=== PATIENT | male | born 1940 | race Caucasian/White ===

== ENCOUNTER 2022-06-22 15:53 | Inpatient (IN) | payer MEDICARE, OTHER ==
[~2022-06-22 15:53] MED LIST: ETOMIDATE 2 MG/ML 10 ML VIAL IVP STA
[2022-06-22] MEDS ORDERED: ROCURONIUM 10 MG/ML (5 ML VIAL) IV ONE (15:54)
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
[2022-06-22 16:16] LABS: Ionized Calcium 5.1 mg/dL (4.5-5.3)
[2022-06-22 16:18] LABS: Basophils # (A) 0.2 k/uL (0-0.2); Basophils % (A) 1 %; Eosinophils # (A) 0.5 k/uL (0-0.7); Eosinophils % (A) 3 %; HGB 14.1 gm/dL (13.0-17.5); Hypochromasia Marked; Lymphocytes # (A) 4.9 k/uL (1.0-4.8); Lymphocytes % (A) 37 %; MCH 29.1 pg (25.0-35.0); MCHC 29.3 g/dL (31.0-37.0); MCV 99.3 fL (80.0-100.0); Mean Platelet Volume 7.8; Monocytes # (A) 0.7 k/uL (0-1.0); Monocytes % (A) 5 %; Neutrophils # (A) 6.7 k/uL (1.3-7.7); Neutrophils % (A) 50 %; Platelet Count 237 k/uL (150-450); RBC 4.83 m/uL (4.30-5.90); RDW 12.7 % (11.5-15.5); WBC 13.4 k/uL (3.8-10.6)
[2022-06-22 16:21] LABS: Albumin 3.8 g/dL (3.5-5.0); Partial Thromboplastin Time 26.8 sec (22.0-30.0); Total Bilirubin 0.6 mg/dL (0.2-1.3); Total Protein 6.4 g/dL (6.3-8.2)
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
[2022-06-22 16:35] LABS: ABG Base Excess -14.2 mmol/L; ABG HCO3 17 mmol/L (21-25); ABG Oxygen Saturation 91.3 % (94-97); ABG PO2 99 mmHg (83-108); ABG TCO2 20 mmol/L (19-24); Allen Test Performed? Yes
--- NOTE | 2022-06-22 16:37 | XR ---
EXAMINATION TYPE: XR chest 1V confirm line [facility] DATE OF EXAM: 06/22/2022 COMPARISON: 06/22/2022 HISTORY: Tube placement TECHNIQUE: FINDINGS: There is nasogastric tube that is folded on itself in the upper thoracic esophagus. The end otracheal tube is 2 cm from the anette. There is pulmonary interstitial edema. IMPRESSION: There is malposition of the nasogastric tube as above. Pulmonary edema unchanged.
[2022-06-22 16:40] LABS: Potassium 4.5 mmol/L (3.5-5.1)
[2022-06-22 16:41] LABS: Magnesium 2.4 mg/dL (1.6-2.3)
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
[2022-06-22 17:05] LABS: ABG PCO2 73 mmHg (35-45); ABG PH 6.98 (7.35-7.45)
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
[2022-06-22] MEDS ORDERED: NALOXONE 0.4 MG/ML 1 ML VIAL IV PRN (17:18)
[2022-06-22] MEDS ORDERED: ASPIRIN 300 MG SUPP RECTAL STA (17:21)
[2022-06-22] MEDS ORDERED: ASPIRIN 325 MG TAB PO STA (17:21)
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
[2022-06-22] MEDS ORDERED: VANCOMYCIN IV PER PHARMACY 1 EACH MISC MISCELLANE PRN (17:41)
[2022-06-22] MEDS ORDERED: niCARdipine 20 MG in SODIUM CHLORIDE 0.9% 192 ML IV SCH (17:45)
[2022-06-22] MEDS ORDERED: FUROSEMIDE 10 MG/ML 4 ML VIAL IV SCH (17:45)
[2022-06-22] MEDS ORDERED: ALBUTEROL NEBULIZED 2.5 MG/3 ML INHALATION SCH ×2 (18:00→19:00)
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
--- NOTE | 2022-06-22 18:12 | XR ---
EXAMINATION TYPE: XR chest 1V confirm line [facility] DATE OF EXAM: 06/22/2022 COMPARISON: Today HISTORY: Check tube placement TECHNIQUE: FINDINGS: There is nasogastric tube folded on itself in the mid esophagus. There is pulmonary patchy edema. Heart size is normal. The endotracheal tube is 4 cm from the anette. No pleural effusion. No p neumothorax. IMPRESSION: Malposition of the nasogastric tube in the esophagus without much change. Pulmonary edema without change.
--- NOTE | 2022-06-22 18:13 | XR ---
EXAMINATION TYPE: XR chest 1V confirm line [facility] DATE OF EXAM: 06/22/2022 COMPARISON: Today HISTORY: Tube placement TECHNIQUE: FINDINGS: There is nasogastric tube with the tip in the stomach. The endotracheal tube is 6 cm from t he anette. There is pulmonary patchy airspace edema. IMPRESSION: NG tube in good position in the stomach. Pulmonary edema without change.
[2022-06-22 18:25] LABS: Glucose,Whole Blood 184 mg/dL (70-110)
[2022-06-22] MEDS: SODIUM CHLORIDE 0.9% 1,000 ML IV SCH (18:41)
[2022-06-22] MEDS: PIPERACILLIN-TAZOBACTAM 3.375 GM in SODIUM CHLORIDE 0.9% 100 ML IVPB SCH (18:44)
[2022-06-22] MEDS: CLEVIDIPINE BUTYRATE 25 MG in EMPTY BAG 1 BAG IV SCH (18:44)
[2022-06-22] MEDS: PANTOPRAZOLE 40 MG/10 ML VIAL IV SCH (18:44)
[2022-06-22 19:14] LABS: ABG Base Excess -7.6 mmol/L; ABG HCO3 19 mmol/L (21-25); ABG Oxygen Saturation 94.9 % (94-97); ABG PCO2 44 mmHg (35-45); ABG PH 7.26 (7.35-7.45); ABG PO2 88 mmHg (83-108); ABG TCO2 21 mmol/L (19-24); Allen Test Performed? Yes
[2022-06-22] MEDS ORDERED: NOREPINEPHRIN 4 MG-0.9% NS PMX 4 MG/250 ML ML IV ONE (19:19)
[2022-06-22] MEDS ORDERED: SODIUM CHLORIDE 0.9% 1,000 ML IV ONE (19:36)
[2022-06-22 19:40] LABS: Appearance,Urine Cloudy (Clear); Bacteria,Urine Many /hpf; Bilirubin,Urine Negative (Negative); Blood,Urine Moderate (Negative); Color,Urine Yellow; Glucose,Urine (UA) Negative (Negative); Ketones,Urine Negative (Negative); Leukocyte Esterase,Urine Small (Negative); Mucus,Urine Rare /hpf; Nitrite,Urine Positive (Negative); Protein,Urine 2+ (Negative); RBC,Urine 12 /hpf (0-5); Specific Gravity,Urine 1.016 (1.001-1.035); Squamous Epithelial Cell,Urine 1 /hpf (0-4); Urobilinogen,Urine <2.0 mg/dL (<2.0); WBC,Urine 65 /hpf (0-5)
[2022-06-22] MEDS ORDERED: VANCOMYCIN 1,750 MG in SODIUM CHLORIDE 0.9% 500 ML 500 ML IVPB ONE (20:00)
[2022-06-22] MEDS: IPRATROPIUM-ALBUTEROL 3 ML NEB INHALATION SCH (20:34)
[2022-06-22] MEDS: HYDROmorphone 1 MG/ML 1 ML SYRINGE IVP PRN ×2 (20:42→23:46)
[2022-06-22] MEDS: CHLORHEXIDINE GLUCONATE 15 ML CUP MUCOUS MEM SCH (20:43)
[2022-06-22] MEDS: DEXAMETHASONE SOD PHOSPHATE 10 MG/ML 1 ML VIAL IVP SCH (20:43)
[2022-06-22 21:11] LABS: ABG Base Excess -7.3 mmol/L; ABG HCO3 20 mmol/L (21-25); ABG Oxygen Saturation 94.8 % (94-97); ABG PCO2 42 mmHg (35-45); ABG PH 7.28 (7.35-7.45); ABG PO2 85 mmHg (83-108); ABG TCO2 21 mmol/L (19-24); Allen Test Performed? Yes
[2022-06-22] MEDS: NOREPINEPHRINE 4 MG in SODIUM CHLORIDE 0.9% 250 ML IV SCH ×3 (21:58→23:31)
[2022-06-22] MEDS ORDERED: SODIUM BICARB 8.4% 50 ML SYR (1 MEQ/ML) IV STA (22:21)
[2022-06-23] MEDS: IPRATROPIUM-ALBUTEROL 3 ML NEB INHALATION SCH ×7 (00:45→23:55)
[2022-06-23] MEDS: PIPERACILLIN-TAZOBACTAM 3.375 GM in SODIUM CHLORIDE 0.9% 100 ML IVPB SCH ×3 (01:09→18:50)
[2022-06-23 01:13] LABS: Glucose,Whole Blood 138 mg/dL (70-110)
[2022-06-23] MEDS: NOREPINEPHRINE 8 MG in SODIUM CHLORIDE 0.9% 250 ML IV SCH ×4 (01:39→19:45)
[2022-06-23 05:45] LABS: ABG Base Excess -5.4 mmol/L; ABG HCO3 21 mmol/L (21-25); ABG PCO2 42 mmHg (35-45); ABG PH 7.31 (7.35-7.45); ABG PO2 98 mmHg (83-108); ABG TCO2 22 mmol/L (19-24); Allen Test Performed? Yes
[2022-06-23 06:03] LABS: Glucose,Whole Blood 133 mg/dL (70-110)
[2022-06-23 06:20] LABS: Calcium 7.8 mg/dL (8.4-10.2); Magnesium 1.9 mg/dL (1.6-2.3); Potassium 5.3 mmol/L (3.5-5.1)
[2022-06-23 06:23] LABS: Partial Thromboplastin Time 23.9 sec (22.0-30.0)
[2022-06-23 06:41] LABS: HCT 43.2 % (39.0-53.0); HGB 14.4 gm/dL (13.0-17.5); MCH 31.2 pg (25.0-35.0); MCHC 33.4 g/dL (31.0-37.0); Mean Platelet Volume 7.9; Platelet Count 250 k/uL (150-450); RBC 4.62 m/uL (4.30-5.90); RDW 13.3 % (11.5-15.5); WBC 20.4 k/uL (3.8-10.6)
[2022-06-23 06:48] LABS: MCV 93.5 fL (80.0-100.0)
[2022-06-23 08:05] LABS: Band Neutrophils % 9 %; Lymphocytes # (M) 0.61 k/uL (1.0-4.8); Monocytes # (M) 0.61 k/uL (0-1.0); Myelocytes % 1 %; Neutrophils % (M) 85 %; Nucleated Red Blood Cells 0 /100 WBC (0-0); Total Cells Counted 200
[2022-06-23 08:06] LABS: RBC Morphology Normal
[2022-06-23] MEDS: PANTOPRAZOLE 40 MG/10 ML VIAL IV SCH (08:30)
[2022-06-23] MEDS: CHLORHEXIDINE GLUCONATE 15 ML CUP MUCOUS MEM SCH (08:30)
[2022-06-23] MEDS: DEXAMETHASONE SOD PHOSPHATE 10 MG/ML 1 ML VIAL IVP SCH (08:31)
--- NOTE | 2022-06-23 08:34 | XR ---
EXAMINATION TYPE: XR chest 1V portable DATE OF EXAM: 06/23/2022 COMPARISON: 06/22/2022 INDICATION: Tube placement difficulty breathing TECHNIQUE: Single frontal view of the chest is obtained. FINDINGS: The heart size is normal. The pulmonary vasculature is prominent. Diffuse mild infiltrate is present, infiltrates improved from comparison. Endotracheal tube tip is above the anette. Nasogastric tube transverses the thorax. IMPRESSION: 1. Good bilateral lung infiltrates. 2. Lines and catheters discussed above.
--- NOTE | 2022-06-23 10:23 | XR ---
EXAMINATION TYPE: XR chest 1V confirm line [facility] DATE OF EXAM: 06/23/2022 COMPARISON: 06/23/2022 INDICATION: Confirm line placement TECHNIQUE: Single frontal view of the chest is obtained. FINDINGS: The heart size is normal. The pulmonary vasculature is normal. Mild right lower lobe infiltrate is present. Endotracheal tube tip is above the anette. Nasogastric tube transverses thorax. Left central venous c atheter is present with the tip in the superior vena cava region. No pneumothorax is evident. IMPRESSION: 1. Improving right lung infiltrates. 2. Lines and catheters discussed above. 3. Left central venous catheter placement with the tip in the superior vena cava region. No pneumotho rax is evident.
--- NOTE | 2022-06-23 11:28 | PCN ---
PROCEDURE NOTE OPERATIVE REPORT: Placement of the left subclavian triple-lumen catheter. PREOPERATIVE DIAGNOSES: Acute hypoxic respiratory failure, cardiac arrest, and anoxic brain injury. POSTOPERATIVE DIAGNOSES: Acute hypoxic respiratory failure, cardiac arrest, and anoxic brain injury. ANESTHESIA USED: 2 mL of 1% lidocaine. PROCEDURE: The patient was placed in a supine position, the area of the left subclavian region was prepared in a sterile fashion. Drapes were applied. The area below the left clavicle was anesthetized locally with lidocaine. Then using the infraclavicular approach, the left subclavian vein was easily cannulated, and a guidewire was placed, and a triple- lumen catheter was inserted over the guidewire, and the guidewire was removed. Good blood flow noted in the 3 different ports of the triple-lumen catheter. No complications. Line was secured with 3.0 silk sutures. Chest x-ray, no complications, and no pneumothorax. MMODL / IJN: [id number] /
--- NOTE | 2022-06-23 11:28 | PCN ---
PROCEDURE NOTE OPERATIVE REPORT: Placement of left radial arterial line. PREOPERATIVE DIAGNOSIS: Acute hypoxic respiratory failure and cardiac arrest. POSTOPERATIVE DIAGNOSIS: Acute hypoxic respiratory failure and cardiac arrest. ANESTHESIA: Used none deployed. PROCEDURE: The left wrist was prepared in a sterile fashion. Drapes were applied, the left radial artery was palpated, cannulated, and a guidewire and a catheter were used using an Arrow catheter, the left radial artery was cannulated easily, and catheter was advanced over the guidewire, the guidewire was removed. Good blood flow, good waveform noted, no complications. Line was secured using 3.0 silk sutures. MMODL / IJN: [id number] /
[2022-06-23 11:48] LABS: Glucose,Whole Blood 150 mg/dL (70-110)
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
[2022-06-23] MEDS ORDERED: HEPARIN SODIUM 1,000 UN/ML (10ML VL) IV ONE (12:49)
[2022-06-23] MEDS ORDERED: HEPARIN SODIUM 1,000 UN/ML (10ML VL) IV PRN (12:49)
[2022-06-23] MEDS: ASPIRIN 81 MG PO SCH (13:18)
[2022-06-23 13:28] LABS: Basophils % (A) 0 %; Eosinophils % (A) 0 %; HCT 40.6 % (39.0-53.0); Lymphocytes # (A) 0.7 k/uL (1.0-4.8); Lymphocytes % (A) 4 %; MCH 29.2 pg (25.0-35.0); MCHC 32.1 g/dL (31.0-37.0); MCV 91.1 fL (80.0-100.0); Mean Platelet Volume 7.7; Monocytes # (A) 0.6 k/uL (0-1.0); Monocytes % (A) 3 %; Neutrophils # (A) 17.3 k/uL (1.3-7.7); Neutrophils % (A) 93 %; Platelet Count 213 k/uL (150-450); RBC 4.46 m/uL (4.30-5.90); RDW 13.1 % (11.5-15.5); WBC 18.7 k/uL (3.8-10.6)
[2022-06-23 13:39] LABS: Partial Thromboplastin Time 24.3 sec (22.0-30.0); Prothrombin Time 10.9 sec (9.0-12.0)
[2022-06-23] MEDS: HEPARIN SOD,PORK IN 0.45% NACL 25,000 UNIT in 0.45% NACL 1 250ML.BAG IV SCH (13:41)
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
--- NOTE | 2022-06-23 14:33 | US ---
EXAMINATION TYPE: US venous doppler duplex LE DATE OF EXAM: 06/23/2022 2:25 PM COMPARISON: NONE CLINICAL HISTORY: elevated d dimer r/o dvt. SIDE PERFORMED: TECHNIQUE: The lower extremity deep venous system is examined utilizing real time linear array sonog price with graded compression, doppler sonography and color-flow sonography. VESSELS IMAGED: Common Femoral Vein Deep Femoral Vein Greater Saphenous Vein * Femoral Vein Popliteal Vein Small Saphenous Vein * Proximal Calf Veins (* superficial vessels) Right Leg: Negative for DVT Left Leg: Negative for DVT Technically difficult at left pop fossa due to patient inability to move his leg. IMPRESSION: No sign of deep vein thrombosis in both legs.
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
[2022-06-23] MEDS ORDERED: VANCOMYCIN 1,750 MG in SODIUM CHLORIDE 0.9% 500 ML 500 ML IVPB SCH (16:00)
[2022-06-23 16:13] LABS: Calcium 7.7 mg/dL (8.4-10.2); Potassium 3.9 mmol/L (3.5-5.1)
[2022-06-23] MEDS: SODIUM CHLORIDE 0.9% 1,000 ML IV SCH (18:13)
[2022-06-23 18:26] LABS: Glucose,Whole Blood 158 mg/dL (70-110)
[2022-06-23] MEDS: CLEVIDIPINE BUTYRATE 25 MG in EMPTY BAG 1 BAG IV SCH (18:31)
[2022-06-23] MEDS ORDERED: DEXTROSE 50% SYRINGE 50 ML IVP PRN ×2 (18:33)
[2022-06-23] MEDS: INSULIN ASPART (NovoLOG) 100 UNIT/ML VIAL SQ SCH (19:20)
--- NOTE | 2022-06-23 21:16 | NM ---
EXAMINATION TYPE: NM pul perfusion DATE OF EXAM: 06/23/2022 COMPARISON: None HISTORY: Chest pain Following administration of 5.2 mCi Tc 99m MAA. Images obtained post injection. FINDINGS: There are small subsegmental perfusion defects in the posterior right lung. There is a single segment al sized perfusion defect in the anterior right middle lobe. IMPRESSION: There is wedge-shaped single perfusion size defect in the right middle lobe. The chest x-ray today sh ows no pulmonary consolidation. There is intermediate probability of pulmonary embolism.
[2022-06-24 01:40] LABS: Glucose,Whole Blood 149 mg/dL (70-110)
[2022-06-24] MEDS: IPRATROPIUM-ALBUTEROL 3 ML NEB INHALATION SCH ×6 (03:51→23:04)
[2022-06-24 05:42] LABS: Basophils % (A) 0 %; Eosinophils % (A) 0 %; HCT 37.9 % (39.0-53.0); HGB 12.3 gm/dL (13.0-17.5); Lymphocytes # (A) 0.7 k/uL (1.0-4.8); Lymphocytes % (A) 4 %; MCH 29.7 pg (25.0-35.0); MCHC 32.4 g/dL (31.0-37.0); MCV 91.7 fL (80.0-100.0); Mean Platelet Volume 7.8; Monocytes # (A) 0.7 k/uL (0-1.0); Monocytes % (A) 4 %; Neutrophils # (A) 16.5 k/uL (1.3-7.7); Neutrophils % (A) 91 %; Platelet Count 199 k/uL (150-450); RBC 4.14 m/uL (4.30-5.90); RDW 13.3 % (11.5-15.5)
[2022-06-24 06:03] LABS: ABG Base Excess -3.1 mmol/L; ABG HCO3 22 mmol/L (21-25); ABG Oxygen Saturation 98.2 % (94-97); ABG PCO2 34 mmHg (35-45); ABG PH 7.41 (7.35-7.45); ABG PO2 105 mmHg (83-108); ABG TCO2 23 mmol/L (19-24); Allen Test Performed? Yes
[2022-06-24 06:08] LABS: Albumin 3.1 g/dL (3.5-5.0); Bilirubin, Delta 0.3 mg/dL (0.0-0.2); Bilirubin,Unconjugated 0.4 mg/dL (0.0-1.1); Calcium 7.1 mg/dL (8.4-10.2); Magnesium 2.1 mg/dL (1.6-2.3); Total Bilirubin 0.7 mg/dL (0.2-1.3); Total Protein 5.6 g/dL (6.3-8.2)
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
[2022-06-24] MEDS: CHLORHEXIDINE GLUCONATE 15 ML CUP MUCOUS MEM SCH ×3 (08:09→21:14)
[2022-06-24] MEDS: PIPERACILLIN-TAZOBACTAM 3.375 GM in SODIUM CHLORIDE 0.9% 100 ML IVPB SCH ×3 (08:10→18:17)
[2022-06-24] MEDS: INSULIN ASPART (NovoLOG) 100 UNIT/ML VIAL SQ SCH ×4 (08:12→23:59)
[2022-06-24] MEDS: ASPIRIN 81 MG PO SCH (08:22)
[2022-06-24] MEDS: PANTOPRAZOLE 40 MG/10 ML VIAL IV SCH (08:23)
[2022-06-24] MEDS: DEXAMETHASONE SOD PHOSPHATE 10 MG/ML 1 ML VIAL IVP SCH (08:23)
--- NOTE | 2022-06-24 08:25 | XR ---
EXAMINATION TYPE: XR chest 1V portable DATE OF EXAM: 06/24/2022 COMPARISON: Chest x-ray 06/23/2022 HISTORY: Intubated TECHNIQUE: Single frontal view of the chest is obtained. FINDINGS: Endotracheal tube, NG tube, left subclavian central venous catheter are overlying appropri ate positions. There are overlying artifacts. No evident pneumothorax or pleural effusion. Probable s ubsegmental basilar atelectatic changes are present. Cardiac mediastinal silhouette is unchanged. The re is some questionable prominence the pulmonary artery which can be seen in pulmonary artery hyperte nsion. IMPRESSION: Probable basilar atelectatic changes, additional findings above
--- NOTE | 2022-06-24 10:02 | CA ---
Transthoracic Echo Report Name: Carlos Cm Age: 82 Gender: M : 1940 Exam Date: 06/24/2022 08:25 Exam Location: [facility] Ht (in): 67 Wt (lb): 199 Ordering Physician: Rj Lockhart DO ([email or web address]) Attending/Referring Phys: Skin Installer Emma Soler RDCS Procedure CPT: Indications: re: LV function Cardiac Hx: Technical Quality: Poor Contrast 1: Total Dose (mL): Contrast 2: Total Dose (mL): MEASUREMENTS (Male / Female) Normal Values 2D ECHO LV Diastolic Diameter PLAX 4.5 cm 4.2 - 5.9 / 3.9 - 5.3 cm LV Systolic Diameter PLAX 2.8 cm IVS Diastolic Thickness 1.3 cm 0.6 - 1.0 / 0.6 - 0.9 cm LVPW Diastolic Thickness 1.2 cm 0.6 - 1.0 / 0.6 - 0.9 cm LV Relative Wall Thickness 0.6 RV Internal Dim ED PLAX 2.7 cm LA Systolic Diameter LX 3.3 cm 3.0 - 4.0 / 2.7 - 3.8 cm M-MODE Aortic Root Diameter MM 3.5 cm AV Cusp Separation MM 2.6 cm DOPPLER AV Peak Velocity 107.3 cm/s AV Peak Gradient 4.6 mmHg MV Area PHT 5.1 cm??? Mitral E Point Velocity 62.5 cm/s Mitral A Point Velocity 77.6 cm/s Mitral E to A Ratio 0.8 MV Deceleration Time 149.2 ms MV E' Velocity 3.4 cm/s Mitral E to MV E' Ratio 18.1 TR Peak Velocity 211.2 cm/s TR Peak Gradient 17.8 mmHg Right Ventricular Systolic Press 32.8 mmHg FINDINGS Left Ventricle Left ventricular ejection fraction is estimated at 55-60 %. Left ventricular cavity size normal. Mild concentric left ventricular hypertrophy. Right Ventricle Normal right ventricular size and function. Right ventricular systolic pressure within normal limits. Right Atrium Normal right atrial size. Left Atrium Normal left atrial size. No evidence for an atrial septal defect. Mitral Valve Structurally normal mitral valve. No mitral stenosis, regurgitation or prolapse. Aortic Valve Trileaflet aortic valve. Mild aortic regurgitation. Tricuspid Valve Mild tricuspid regurgitation. Pulmonic Valve Pulmonic valve not well visualized. Pericardium Normal pericardium. No pericardial effusion. Aorta Normal size aortic root and proximal ascending aorta. CONCLUSIONS Left ventricular hypertrophy Preserved LV systolic function Dilated IVC Previewed by: Dr. Kirill Shaffer MD (Electronically Signed) Final Date: 24 June 2022 10:01
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
[2022-06-24] MEDS: HEPARIN SOD,PORK IN 0.45% NACL 25,000 UNIT in 0.45% NACL 1 250ML.BAG IV SCH ×2 (11:42→20:50)
[2022-06-24 11:43] LABS: Glucose,Whole Blood 142 mg/dL (70-110)
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
--- NOTE | 2022-06-24 15:03 | CT ---
EXAMINATION TYPE: CT brain wo con DATE OF EXAM: 06/24/2022 HISTORY: Cardiac arrest. CT DLP: 1231.4 mGycm. Automated Exposure Control for Dose Reduction was Utilized. TECHNIQUE: CT scan of the head is performed without contrast. COMPARISON: CT Brain Without 2 days ago. FINDINGS: There is no acute intracranial hemorrhage or midline shift identified. There is mild to m oderate diffuse ventricular and sulcal prominence consistent with diffuse age-related cerebral atroph y. Caba-white matter differentiation fairly well-maintained. Scleral calcifications peripherally left globe redemonstrated. Persistent dependent fluid or mucosal thickening in the inferior left frontal sinus and dependent fluid and mucosal thickening left sphenoid sinus is improved. Resolved dependent fluid right sphenoid sinus. IMPRESSION: No acute intracranial hemorrhage or midline shift. Improving paranasal sinus disease not ed.
[2022-06-24] MEDS: NOREPINEPHRINE 8 MG in SODIUM CHLORIDE 0.9% 250 ML IV SCH ×2 (17:35→21:15)
[2022-06-24 18:04] LABS: Glucose,Whole Blood 126 mg/dL (70-110)
[2022-06-24] MEDS: SODIUM CHLORIDE 0.9% 1,000 ML IV SCH (18:18)
[2022-06-24 23:57] LABS: Glucose,Whole Blood 129 mg/dL (70-110)
--- NOTE | 2022-06-25 00:30 | EEG ---
ELECTROENCEPHALOGRAM REPORT CLINICAL HISTORY: This is an 82-year-old gentleman with cardiac arrest, who continues to have altered mental status. The video EEG is obtained to evaluate for seizure epileptiform activity. RELEVANT MEDICATION: IV propofol. EEG TYPE: Routine 21-channel EEG is performed with video using the 10/20 electrode placement system. DESCRIPTION: The patient is intubated on a ventilator. The background consists of [id number] voltage of 1 to 2 hertz nonrhythmic delta activity. At times, the background consists of theta activity. There is no physiological stage 2 sleep architecture. There is no focal slowing. Interictal and ictal is none. ACTIVATION PROCEDURE: Photic stimulation did not evoke a posterior driving response. There is no abnormality during the photic stimulation. Hyperventilation is not performed. CLINICAL INTERPRETATION: This is an abnormal routine EEG. The background slowing is suggestive of moderate-to- severe encephalopathy. Otherwise, there is no focal slowing, epileptiform discharge or seizure on the EEG. Clinical correlation is recommended. MMTOMAS / EDGARN: [id number] /
[2022-06-25] MEDS: PIPERACILLIN-TAZOBACTAM 3.375 GM in SODIUM CHLORIDE 0.9% 100 ML IVPB SCH ×3 (02:17→18:17)
[2022-06-25] MEDS: IPRATROPIUM-ALBUTEROL 3 ML NEB INHALATION SCH ×6 (03:10→23:55)
[2022-06-25] MEDS: SODIUM CHLORIDE 0.9% 1,000 ML IV SCH (03:25)
[2022-06-25 05:06] LABS: Glucose,Whole Blood 134 mg/dL (70-110)
[2022-06-25] MEDS: INSULIN ASPART (NovoLOG) 100 UNIT/ML VIAL SQ SCH ×4 (05:09→23:59)
[2022-06-25 05:25] LABS: HCT 33.3 % (39.0-53.0); HGB 10.7 gm/dL (13.0-17.5); MCH 29.7 pg (25.0-35.0); MCHC 32.2 g/dL (31.0-37.0); MCV 92.4 fL (80.0-100.0); Mean Platelet Volume 8.7; Platelet Count 182 k/uL (150-450); RDW 13.6 % (11.5-15.5); WBC 15.9 k/uL (3.8-10.6)
[2022-06-25 05:39] LABS: ABG Base Excess -0.8 mmol/L; ABG HCO3 24 mmol/L (21-25); ABG Oxygen Saturation 97.3 % (94-97); ABG PCO2 37 mmHg (35-45); ABG PH 7.42 (7.35-7.45); ABG PO2 93 mmHg (83-108); ABG TCO2 25 mmol/L (19-24); Allen Test Performed? Yes
[2022-06-25 06:30] LABS: Albumin 2.9 g/dL (3.5-5.0); Calcium 7.1 mg/dL (8.4-10.2); Magnesium 2.3 mg/dL (1.6-2.3); Phosphorus 3.3 mg/dL (2.5-4.5); Potassium 4.1 mmol/L (3.5-5.1); Total Bilirubin 0.6 mg/dL (0.2-1.3); Total Protein 5.2 g/dL (6.3-8.2)
--- NOTE | 2022-06-25 07:46 | P.PN ---
Subjective Progress Note Date: 06/25/22 Principal diagnosis: Cardiopulmonary arrest This is an 82-year-old gentleman with a past medical history significant for paroxysmal atrial fibrillation as well as hypertension and dyslipidemia who had a witnessed cardiac arrest by his family. EMS was advised. The patient was d efibrillated. The underlying rhythm at this point is unknown. Subsequently the patient was brought to the hospital where he was intubated and placed on mechanical ventilation. The patient was seen this morning. He continues to be intubated on mechanical ventilation. Apparently there is some concern regarding anoxic encephalopathy. He is also hemodynamically unstable and still requiring a small dose of norepinephrine. He underwent an echocardiogram which revealed normal left ventricular systolic function was no significant valvular abnormalities. Hemodynamically he is also slightly bradycardic with heart rate in the 40s. He is not on any AV krystin birgit agents. Objective - Vital Signs Vital signs: Vital Signs Temp 97.6 F 06/25/22 04:00 Pulse 47 L 06/25/22 07:00 Resp 10 L 06/25/22 07:00 BP 106/58 06/24/22 19:30 Pulse Ox 96 06/25/22 07:00 FiO2 50 06/25/22 04:00 Intake & Output 06/24/22 06/25/22 06/25/22 18:59 06:59 18:59 Intake Total 865.609 650.709 3 Output Total 775 476 40 Balance 90.609 174.709 -37 Weight 90.5 kg 90.6 kg Intake: IV 276 250 3 Piperacillin-Tazobactam 3 100 .375 gm In Sodium Chloride 0.9% 100 ml @ 25 mls/hr IVPB Q8H [facility] Rx#: [id number] Pressure Bag 36 30 3 Sodium Chloride 0.9% 1, 240 120 000 ml @ 20 mls/hr IV . Q24H [facility] Rx#:[id number] Intake, IV Titration 589.609 210.709 Amount Heparin Sod,Pork in 0.45% 52.944 NaCl 25,000 unit In 0.45 % NaCl 1 250ml.bag @ 18 UNITS/KG/HR 16.398 mls/hr IV .[id number] [facility] Rx#: [id number] Norepinephrine 8 mg In 261.306 10.709 Sodium Chloride 0.9% 250 ml @ 0.05 MCG/KG/MIN 8. 777 mls/hr IV .Q24H [facility] Rx#:[id number] propofoL 1,000 mg In 275.359 200.000 Empty Bag 1 bag @ 5 MCG/ KG/MIN 2.722 mls/hr IV . Q24H [facility] Rx#:[id number] Tube Feeding 130 Other 60 Output: Urine 775 476 40 Other: Voiding Method Indwelling Catheter Indwelling Catheter ABP, PAP, CO, CI - Last Documented Arterial Blood Pressure 117/54 - Constitutional General appearance: Present: no acute distress - Respiratory Respiratory: bilateral: diminished - Cardiovascular Rhythm: regular Heart sounds: normal: S1, S2 - Labs CBC & Chem 7: 06/25/22 05:00 06/25/22 05:00 Labs: Abnormal Lab Results - Last 24 Hours (Table) 06/24/22 06/24/22 06/24/22 Range/Units 11:41 13:28 18:02 WBC (3.8-10.6) k/uL RBC (4.30-5.90) m/uL Hgb (13.0-17.5) gm/dL Hct (39.0-53.0) % APTT 54.7 H (22.0-30.0) sec ABG Total CO2 (19-24) mmol/L ABG O2 Saturation (94-97) % Chloride (98-107) mmol/L BUN (9-20) mg/dL Glucose (74-99) mg/dL POC Glucose (mg/dL) 142 H 126 H (70-110) mg/dL Calcium (8.4-10.2) mg/dL Total Protein (6.3-8.2) g/dL Albumin (3.5-5.0) g/dL 06/24/22 06/25/22 06/25/22 Range/Units 23:56 05:00 05:00 WBC 15.9 H (3.8-10.6) k/uL RBC 3.60 L (4.30-5.90) m/uL Hgb 10.7 L (13.0-17.5) gm/dL Hct 33.3 L (39.0-53.0) % APTT (22.0-30.0) sec ABG Total CO2 (19-24) mmol/L ABG O2 Saturation (94-97) % Chloride 112 H (98-107) mmol/L BUN 29 H (9-20) mg/dL Glucose 128 H (74-99) mg/dL POC Glucose (mg/dL) 129 H (70-110) mg/dL Calcium 7.1 L (8.4-10.2) mg/dL Total Protein 5.2 L (6.3-8.2) g/dL Albumin 2.9 L (3.5-5.0) g/dL 06/25/22 06/25/22 Range/Units 05:04 05:40 WBC (3.8-10.6) k/uL RBC (4.30-5.90) m/uL Hgb (13.0-17.5) gm/dL Hct (39.0-53.0) % APTT (22.0-30.0) sec ABG Total CO2 25 H (19-24) mmol/L ABG O2 Saturation 97.3 H (94-97) % Chloride (98-107) mmol/L BUN (9-20) mg/dL Glucose (74-99) mg/dL POC Glucose (mg/dL) 134 H (70-110) mg/dL Calcium (8.4-10.2) mg/dL Total Protein (6.3-8.2) g/dL Albumin (3.5-5.0) g/dL Microbiology - Last 24 Hours (Table) 06/22/22 18:45 Urine Culture - Final Urine,Voided Enterobacter aerogenes 06/23/22 05:00 Gram Stain - Preliminary Sputum Sputum Culture - Preliminary Assessment and Plan Assessment: Assessment #1 cardiopulmonary arrest and the patient received defibrillation #2 hypotension. Currently the patient is on norepinephrine #3 bradycardia #4 renal failure #5 elevated d-dimer #6 paroxysmal atrial fibrillation Plan #1 consider switch the patient from norepinephrine to dopamine if he continues to be bradycardic #2 continue ventilator management #3 without an exit encephalopathy #4 follow-up with the patient
--- NOTE | 2022-06-25 08:10 | XR ---
EXAMINATION TYPE: XR chest 1V portable DATE OF EXAM: 06/25/2022 COMPARISON: Chest x-ray 06/24/2022 HISTORY: Intubated TECHNIQUE: Single frontal view of the chest is obtained. FINDINGS: Endotracheal tube and NG tube, left subclavian central venous catheter are stable and over lying appropriate positions. Interstitium is mildly increased. Cardiac mediastinal sweat shows a soraya lar appearance. Aorta is dense. There are overlying artifacts. No evident pneumothorax or pleural eff usion. Question some basilar increased attenuation, lung volumes are low. IMPRESSION: Findings are similar to prior exam. May be some basilar atelectasis, there is underlying emphysema, there may be a mild interstitial edema, correlate.
[2022-06-25] MEDS: PANTOPRAZOLE 40 MG/10 ML VIAL IV SCH (08:54)
[2022-06-25] MEDS: CHLORHEXIDINE GLUCONATE 15 ML CUP MUCOUS MEM SCH ×2 (08:54→20:08)
[2022-06-25] MEDS: DEXAMETHASONE SOD PHOSPHATE 10 MG/ML 1 ML VIAL IVP SCH (08:54)
[2022-06-25] MEDS: ASPIRIN 81 MG PO SCH (08:56)
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
[2022-06-25 11:49] LABS: Glucose,Whole Blood 125 mg/dL (70-110)
[2022-06-25] MEDS: HEPARIN SOD,PORK IN 0.45% NACL 25,000 UNIT in 0.45% NACL 1 250ML.BAG IV SCH (12:51)
[2022-06-25] MEDS: HYDROmorphone 1 MG/ML 1 ML SYRINGE IVP PRN ×2 (12:52→15:49)
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
[2022-06-25] MEDS ORDERED: VANCOMYCIN TROUGH DUE 1 EACH MISC MISCELLANE ONE (15:00)
[2022-06-25 18:11] LABS: Glucose,Whole Blood 122 mg/dL (70-110)
[2022-06-25 23:53] LABS: Glucose,Whole Blood 103 mg/dL (70-110)
[2022-06-26] MEDS: HEPARIN SOD,PORK IN 0.45% NACL 25,000 UNIT in 0.45% NACL 1 250ML.BAG IV SCH ×3 (01:13→22:16)
[2022-06-26] MEDS: PIPERACILLIN-TAZOBACTAM 3.375 GM in SODIUM CHLORIDE 0.9% 100 ML IVPB SCH ×3 (01:15→17:41)
[2022-06-26] MEDS: SODIUM CHLORIDE 0.9% 1,000 ML IV SCH (01:26)
[2022-06-26] MEDS: IPRATROPIUM-ALBUTEROL 3 ML NEB INHALATION SCH ×5 (03:50→20:21)
[2022-06-26 05:05] LABS: HCT 33.9 % (39.0-53.0); HGB 10.9 gm/dL (13.0-17.5); MCHC 32.3 g/dL (31.0-37.0); MCV 92.9 fL (80.0-100.0); Mean Platelet Volume 8.4; Platelet Count 222 k/uL (150-450); RBC 3.65 m/uL (4.30-5.90); RDW 13.6 % (11.5-15.5); WBC 17.1 k/uL (3.8-10.6)
[2022-06-26 05:29] LABS: Calcium 7.1 mg/dL (8.4-10.2); Magnesium 2.4 mg/dL (1.6-2.3); Phosphorus 3.6 mg/dL (2.5-4.5); Potassium 4.1 mmol/L (3.5-5.1)
[2022-06-26 06:06] LABS: Glucose,Whole Blood 102 mg/dL (70-110)
[2022-06-26] MEDS: INSULIN ASPART (NovoLOG) 100 UNIT/ML VIAL SQ SCH ×3 (06:15→17:57)
[2022-06-26 06:35] LABS: ABG Base Excess 0.9 mmol/L; ABG HCO3 25 mmol/L (21-25); ABG Oxygen Saturation 94.8 % (94-97); ABG PCO2 37 mmHg (35-45); ABG PH 7.44 (7.35-7.45); ABG PO2 71 mmHg (83-108); ABG TCO2 26 mmol/L (19-24); Allen Test Performed? Yes
--- NOTE | 2022-06-26 07:31 | XR ---
EXAMINATION TYPE: XR chest 1V portable DATE OF EXAM: 06/26/2022 COMPARISON: Chest x-ray 01/13/2022 HISTORY: Intubated TECHNIQUE: Single frontal view of the chest is obtained. FINDINGS: Endotracheal tube is seen overlying appropriate position. NG tube shows the distal tip at the level of the distal thoracic esophagus. Left subclavian central venous catheter is stable. No renate dent pneumothorax. Bibasilar increased attenuation again seen. Cardiac mediastinal silhouette is stable, prominence the pulmonary artery is again noted. There are o verlying artifacts. Interstitium appears less prominently. IMPRESSION: NG tube has withdrawn in the interval. Correlate for basilar atelectasis versus pneumoni a. Patient with underlying emphysema, there may be some improvement in volume status.
--- NOTE | 2022-06-26 07:33 | P.PN ---
Subjective Progress Note Date: 06/26/22 Principal diagnosis: Cardiopulmonary arrest This is an 82-year-old gentleman with a past medical history significant for paroxysmal atrial fibrillation as well as hypertension and dyslipidemia who had a witnessed cardiac arrest by his family. EMS was advised. The patient was d efibrillated. The underlying rhythm at this point is unknown. Subsequently the patient was brought to the hospital where he was intubated and placed on mechanical ventilation. The patient wasn't seen this morning. Unfortunately he continues to be intubated on mechanical ventilation. 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 Beside that he continues to be on vasopressors was n orepinephrine. He underwent an echo which revealed normal LV function was no significant valvular abnormalities and no evidence of RV strain. He is on heparin IV for possible PE. From the cardiac standpoint of view, would continue the current medical regimen and consider DC the heparin and start the patient on oral anticoagulation unless the patient is going to undergo any intervention. Meanwhile will follow-up regarding the concern regarding anoxic encephalopathy. Objective - Vital Signs Vital signs: Vital Signs Temp 98.1 F 06/26/22 04:00 Pulse 64 06/26/22 07:00 Resp 14 06/26/22 07:00 BP 130/77 06/26/22 07:00 Pulse Ox 95 06/26/22 07:00 FiO2 50 06/26/22 04:00 Intake & Output 06/25/22 06/26/22 06/26/22 18:59 06:59 18:59 Intake Total 1229.478 727.273 3 Output Total 705 468 35 Balance 524.478 259.273 -32 Weight 93.5 kg Intake: IV 403 253 3 Piperacillin-Tazobactam 3 200 100 .375 gm In Sodium Chloride 0.9% 100 ml @ 25 mls/hr IVPB Q8H [facility] Rx#: [id number] Pressure Bag 3 33 3 Sodium Chloride 0.9% 1, 200 120 000 ml @ 20 mls/hr IV . Q24H [facility] Rx#:[id number] Intake, IV Titration 669.478 377.273 Amount Heparin Sod,Pork in 0.45% 250 173.029 NaCl 25,000 unit In 0.45 % NaCl 1 250ml.bag @ 18 UNITS/KG/HR 16.398 mls/hr IV .[id number] [facility] Rx#: [id number] Norepinephrine 8 mg In 51.319 61.033 Sodium Chloride 0.9% 250 ml @ 0.05 MCG/KG/MIN 8. 777 mls/hr IV .Q24H [facility] Rx#:[id number] Piperacillin-Tazobactam 3 100 .375 gm In Sodium Chloride 0.9% 100 ml @ 25 mls/hr IVPB Q8H [facility] Rx#: [id number] propofoL 1,000 mg In 268.159 143.211 Empty Bag 1 bag @ 5 MCG/ KG/MIN 2.722 mls/hr IV . Q24H [facility] Rx#:[id number] Tube Feeding 157 67 Other 30 Output: Urine 705 468 35 Other: Voiding Method Indwelling Catheter Indwelling Catheter ABP, PAP, CO, CI - Last Documented Arterial Blood Pressure 127/49 - Constitutional General appearance: Present: no acute distress - Respiratory Respiratory: bilateral: diminished - Cardiovascular Rhythm: regular Heart sounds: normal: S1, S2 - Labs CBC & Chem 7: 06/26/22 04:40 06/26/22 04:40 Labs: Abnormal Lab Results - Last 24 Hours (Table) 06/25/22 06/25/22 06/25/22 Range/Units 07:41 11:46 18:10 WBC (3.8-10.6) k/uL RBC (4.30-5.90) m/uL Hgb (13.0-17.5) gm/dL Hct (39.0-53.0) % APTT 53.8 H (22.0-30.0) sec ABG pO2 (83-108) mmHg ABG Total CO2 (19-24) mmol/L Chloride (98-107) mmol/L BUN (9-20) mg/dL Glucose (74-99) mg/dL POC Glucose (mg/dL) 125 H 122 H (70-110) mg/dL Calcium (8.4-10.2) mg/dL Magnesium (1.6-2.3) mg/dL 06/26/22 06/26/22 06/26/22 Range/Units 04:40 04:40 04:40 WBC 17.1 H (3.8-10.6) k/uL RBC 3.65 L (4.30-5.90) m/uL Hgb 10.9 L (13.0-17.5) gm/dL Hct 33.9 L (39.0-53.0) % APTT 41.2 H (22.0-30.0) sec ABG pO2 (83-108) mmHg ABG Total CO2 (19-24) mmol/L Chloride 111 H (98-107) mmol/L BUN 35 H (9-20) mg/dL Glucose 115 H (74-99) mg/dL POC Glucose (mg/dL) (70-110) mg/dL Calcium 7.1 L (8.4-10.2) mg/dL Magnesium 2.4 H (1.6-2.3) mg/dL 06/26/22 Range/Units 06:04 WBC (3.8-10.6) k/uL RBC (4.30-5.90) m/uL Hgb (13.0-17.5) gm/dL Hct (39.0-53.0) % APTT (22.0-30.0) sec ABG pO2 71 L (83-108) mmHg ABG Total CO2 26 H (19-24) mmol/L Chloride (98-107) mmol/L BUN (9-20) mg/dL Glucose (74-99) mg/dL POC Glucose (mg/dL) (70-110) mg/dL Calcium (8.4-10.2) mg/dL Magnesium (1.6-2.3) mg/dL Microbiology - Last 24 Hours (Table) 06/23/22 05:00 Gram Stain - Final Sputum Sputum Culture - Final Assessment and Plan Assessment: Assessment #1 cardiopulmonary arrest and the patient received defibrillation #2 hypotension. Currently the patient is on norepinephrine #3 bradycardia #4 renal failure #5 elevated d-dimer #6 paroxysmal atrial fibrillation Plan #1 consider switch the patient from norepinephrine to dopamine if he continues to be bradycardic #2 consider stopping the heparin IV and start the patient on oral anticoagulation #3 try to wean the patient from norepinephrine #4 follow-up regarding the anoxic encephalopathy
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
[2022-06-26] MEDS: CHLORHEXIDINE GLUCONATE 15 ML CUP MUCOUS MEM SCH ×2 (08:48→20:44)
[2022-06-26] MEDS: PANTOPRAZOLE 40 MG/10 ML VIAL IV SCH (08:48)
[2022-06-26] MEDS: ASPIRIN 81 MG PO SCH (08:58)
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
--- NOTE | 2022-06-26 09:13 | XR ---
EXAMINATION TYPE: XR chest 1V portable DATE OF EXAM: 06/26/2022 COMPARISON: Chest x-ray 02/10/2022 HISTORY: Orogastric tube placement TECHNIQUE: Single frontal view of the chest is obtained. FINDINGS: There is been interval repositioning of the orogastric tube shows the distal tip in the le ft upper quadrant, side-port thought present at the level of the gastroesophageal junction. Lung volu mes are low. There is overlying artifact. No significant interval change. IMPRESSION: Tube as described.
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
[2022-06-26 12:02] LABS: Glucose,Whole Blood 85 mg/dL (70-110)
[2022-06-26 12:42] LABS: Allen Test Performed? Yes
[2022-06-26 12:48] LABS: ABG Base Excess 1.5 mmol/L; ABG Glucose Whole Blood 88 mg/dL (75-99); ABG HCO3 25 mmol/L (21-25); ABG Hematocrit 35 % (34.0-46.0); ABG Ionized Calcium 4.3 mg/dL (4.5-5.3); ABG Lactic Acid Whole Blood 1.6 mmol/L (0.5-1.6); ABG Oxygen Saturation 94.9 % (94-97); ABG PCO2 34 mmHg (35-45); ABG PH 7.47 (7.35-7.45); ABG PO2 73 mmHg (83-108); ABG Potassium Whole Blood 3.9 mmol/L (3.4-4.5); ABG Sodium Whole Blood 142 mmol/L (135-146); ABG TCO2 26 mmol/L (19-24)
[2022-06-26] MEDS ORDERED: ONDANSETRON 4 MG/2 ML VIAL IVP PRN (14:23)
[2022-06-26 17:47] LABS: Glucose,Whole Blood 86 mg/dL (70-110)
[2022-06-27 00:12] LABS: Glucose,Whole Blood 92 mg/dL (70-110)
[2022-06-27] MEDS: IPRATROPIUM-ALBUTEROL 3 ML NEB INHALATION SCH ×6 (00:19→20:49)
[2022-06-27] MEDS: INSULIN ASPART (NovoLOG) 100 UNIT/ML VIAL SQ SCH ×4 (00:57→18:26)
[2022-06-27] MEDS: PIPERACILLIN-TAZOBACTAM 3.375 GM in SODIUM CHLORIDE 0.9% 100 ML IVPB SCH ×3 (04:02→18:29)
[2022-06-27 05:37] LABS: Basophils % (A) 0 %; Eosinophils # (A) 0.1 k/uL (0-0.7); Eosinophils % (A) 0 %; HCT 36.9 % (39.0-53.0); HGB 12.1 gm/dL (13.0-17.5); Lymphocytes # (A) 1.5 k/uL (1.0-4.8); Lymphocytes % (A) 13 %; MCH 30.8 pg (25.0-35.0); MCHC 32.9 g/dL (31.0-37.0); MCV 93.7 fL (80.0-100.0); Mean Platelet Volume 8.5; Monocytes # (A) 0.8 k/uL (0-1.0); Monocytes % (A) 7 %; Neutrophils # (A) 8.9 k/uL (1.3-7.7); Neutrophils % (A) 78 %; Platelet Count 208 k/uL (150-450); RBC 3.94 m/uL (4.30-5.90); RDW 13.9 % (11.5-15.5); WBC 11.4 k/uL (3.8-10.6)
[2022-06-27 05:39] LABS: Glucose,Whole Blood 90 mg/dL (70-110)
[2022-06-27] MEDS: NOREPINEPHRINE 8 MG in SODIUM CHLORIDE 0.9% 250 ML IV SCH (06:07)
[2022-06-27 07:35] LABS: Albumin 3.2 g/dL (3.5-5.0); Calcium 7.9 mg/dL (8.4-10.2); Potassium 3.8 mmol/L (3.5-5.1); Total Protein 5.7 g/dL (6.3-8.2)
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
[2022-06-27] MEDS ORDERED: DEXAMETHASONE SOD PHOSPHATE 10 MG/ML 1 ML VIAL IVP STA (08:22)
[2022-06-27] MEDS ORDERED: diphenhydrAMINE 50 MG/ML 1 ML VIAL IVP STA (08:23)
--- NOTE | 2022-06-27 08:53 | XR ---
EXAMINATION TYPE: XR chest 1V portable DATE OF EXAM: 06/27/2022 COMPARISON: Chest x-ray 06/26/2022 HISTORY: Extubated, abnormal chest x-ray TECHNIQUE: Single frontal view of the chest is obtained. FINDINGS: Endotracheal tube and NG tube have been removed. Patient is rotated. Left subclavian centr al venous catheter remains in place. No evident pneumothorax. Bibasilar increased density is present within the lungs, there is blunting the costophrenic angles. Cardiomediastinal silhouette felt likely to be stable, heart is enlarged. Prominence of pulmonary artery may be indicative of pulmonary arter y hypertension. Mild prominence interstitium again noted. Patient with underlying emphysema. IMPRESSION: Basilar atelectasis, possible associated effusions, difficult to exclude edema versus pn eumonia. Additional findings above. Expiratory rotated exam, follow-up recommended.
[2022-06-27] MEDS: PANTOPRAZOLE 40 MG/10 ML VIAL IV SCH (09:09)
[2022-06-27] MEDS: ASPIRIN 81 MG PO SCH (09:17)
[2022-06-27] MEDS: APIXABAN 5 MG TAB PO SCH ×2 (09:17→20:12)
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
[2022-06-27] MEDS ORDERED: METOCLOPRAMIDE 5 MG/ML 2 ML VIAL IVP PRN (10:11)
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
[2022-06-27 12:10] LABS: Glucose,Whole Blood 105 mg/dL (70-110)
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
[2022-06-27 17:10] LABS: Glucose,Whole Blood 118 mg/dL (70-110)
[2022-06-27] MEDS ORDERED: Potassium Replacement Protocol 1 EACH MISC MISCELLANE PRN (19:37)
[2022-06-27] MEDS: POTASSIUM CHLORIDE 10 MEQ in WATER FOR INJECTION 1 100ML.BAG IVPB SCH ×2 (20:25→21:42)
[2022-06-27] MEDS: SODIUM CHLORIDE 0.9% 1,000 ML IV SCH (20:26)
[2022-06-28] MEDS: IPRATROPIUM-ALBUTEROL 3 ML NEB INHALATION SCH ×6 (00:18→19:13)
[2022-06-28 02:15] LABS: Glucose,Whole Blood 106 mg/dL (70-110)
[2022-06-28] MEDS: INSULIN ASPART (NovoLOG) 100 UNIT/ML VIAL SQ SCH ×5 (02:15→20:45)
[2022-06-28] MEDS: NOREPINEPHRINE 8 MG in SODIUM CHLORIDE 0.9% 250 ML IV SCH (02:15)
[2022-06-28] MEDS: PIPERACILLIN-TAZOBACTAM 3.375 GM in SODIUM CHLORIDE 0.9% 100 ML IVPB SCH ×3 (02:16→18:06)
[2022-06-28 06:14] LABS: Basophils # (A) 0.1 k/uL (0-0.2); Basophils % (A) 0 %; Eosinophils % (A) 0 %; HCT 36.3 % (39.0-53.0); HGB 11.8 gm/dL (13.0-17.5); Lymphocytes # (A) 1.2 k/uL (1.0-4.8); Lymphocytes % (A) 9 %; MCH 30.1 pg (25.0-35.0); MCHC 32.7 g/dL (31.0-37.0); MCV 92.1 fL (80.0-100.0); Mean Platelet Volume 8.7; Monocytes # (A) 0.8 k/uL (0-1.0); Monocytes % (A) 6 %; Neutrophils % (A) 83 %; Platelet Count 208 k/uL (150-450); RBC 3.94 m/uL (4.30-5.90); RDW 13.3 % (11.5-15.5); WBC 13.2 k/uL (3.8-10.6)
[2022-06-28 06:24] LABS: Calcium 7.5 mg/dL (8.4-10.2)
--- NOTE | 2022-06-28 07:14 | XR ---
EXAMINATION TYPE: XR chest 1V portable DATE OF EXAM: 06/28/2022 CLINICAL HISTORY: Difficulty breathing progress study. TECHNIQUE: Single AP portable semiupright view of the chest is obtained. COMPARISON: Chest x-ray from one day earlier and older studies. FINDINGS: Stable left subclavian central venous catheter. Persistent bibasilar opacities. Improved small left pleural effusion. Cardiac silhouette size stable and mildly enlarged with ectatic and atherosclerotic thoracic aorta redemonstrated. Osseous structure s are intact. IMPRESSION: Mild cardiomegaly redemonstrated. Patchy bibasilar atelectasis and/or infiltrates again s een and stable. Improved small bilateral pleural effusions from one day earlier.
[2022-06-28] MEDS ORDERED: FUROSEMIDE 10 MG/ML 2 ML VIAL IV ONE (07:39)
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
[2022-06-28] MEDS: ASPIRIN 81 MG PO SCH (09:05)
[2022-06-28] MEDS: APIXABAN 5 MG TAB PO SCH ×2 (09:05→20:44)
[2022-06-28] MEDS: PANTOPRAZOLE 40 MG/10 ML VIAL IV SCH (09:05)
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
[2022-06-28] MEDS ORDERED: traZODone HCL 50 MG TAB PO ONE (10:19)
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
[2022-06-28 11:47] LABS: Glucose,Whole Blood 111 mg/dL (70-110)
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
[2022-06-28 17:32] LABS: Glucose,Whole Blood 109 mg/dL (70-110)
[2022-06-28] MEDS: SODIUM CHLORIDE 0.9% 1,000 ML IV SCH (18:33)
[2022-06-28 20:35] LABS: Glucose,Whole Blood 96 mg/dL (70-110)
[2022-06-28] MEDS: traZODone HCL 50 MG TAB PO SCH (20:45)
[2022-06-29] MEDS: IPRATROPIUM-ALBUTEROL 3 ML NEB INHALATION SCH ×6 (00:13→20:19)
[2022-06-29] MEDS: PIPERACILLIN-TAZOBACTAM 3.375 GM in SODIUM CHLORIDE 0.9% 100 ML IVPB SCH ×3 (02:32→21:25)
[2022-06-29 07:00] LABS: Glucose,Whole Blood 93 mg/dL (70-110)
[2022-06-29] MEDS: INSULIN ASPART (NovoLOG) 100 UNIT/ML VIAL SQ SCH ×4 (07:19→21:28)
[2022-06-29] MEDS: ASPIRIN 81 MG PO SCH (09:23)
[2022-06-29] MEDS: PANTOPRAZOLE 40 MG/10 ML VIAL IV SCH (09:23)
[2022-06-29] MEDS: APIXABAN 5 MG TAB PO SCH ×2 (09:23→21:28)
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
[2022-06-29 11:33] LABS: Glucose,Whole Blood 89 mg/dL (70-110)
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
[2022-06-29 12:00] LABS: Basophils # (A) 0.04 X 10*3/uL (0.00-0.10); Basophils % (A) 0.3 %; Eosinophils # (A) 0.42 X 10*3/uL (0.04-0.35); Eosinophils % (A) 3.2 %; HCT 37.1 % (39.6-50.0); Immature Grans, Automated 4.1 %; Lymphocytes # (A) 1.36 X 10*3/uL (0.90-5.00); Lymphocytes % (A) 10.2 %; MCH 29.7 pg (27.0-32.0); MCHC 32.3 g/dL (32.0-37.0); MCV 91.8 fL (80.0-97.0); Mean Platelet Volume 10.1 fL (9.5-12.2); Monocytes # (A) 1.02 X 10*3/uL (0.20-1.00); Monocytes % (A) 7.7 %; NRBC Per 100 WBC 0 /100 WBCS (0.0-0.0); Neutrophils # (A) 9.88 X 10*3/uL (1.80-7.70); Neutrophils % (A) 74.5 %; Platelet Count 218 X 10*3/uL (140-440); RBC 4.04 X 10*6/uL (4.40-5.60); RDW 13.9 % (11.5-14.5); WBC 13.27 X 10*3/uL (4.50-10.00)
[2022-06-29 12:26] LABS: African American GFR (CKD) 58.9 (60.0-200.0); Anion Gap 9.6 mmol/L (10.00-18.00); BUN/Creat Ratio 28.23 Ratio (12.00-20.00); Blood Urea Nitrogen 36.7 mg/dL (9.0-27.0); Calcium 7.9 mg/dL (8.7-10.3); Carbon Dioxide 26.4 mmol/L (20.0-27.5); Magnesium 2.4 mg/dL (1.5-2.4); Non-African American GFR(CKD) 50.8 (60.0-200.0); Potassium 3.6 mmol/L (3.5-5.5)
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
[2022-06-29 16:42] LABS: Glucose,Whole Blood 92 mg/dL (70-110)
[2022-06-29 20:39] LABS: Glucose,Whole Blood 88 mg/dL (70-110)
[2022-06-29] MEDS: traZODone HCL 50 MG TAB PO SCH (21:28)
[2022-06-30] MEDS: IPRATROPIUM-ALBUTEROL 3 ML NEB INHALATION SCH ×7 (00:08→23:26)
[2022-06-30] MEDS: SODIUM CHLORIDE 0.9% 1,000 ML IV SCH ×2 (01:50→23:33)
[2022-06-30] MEDS: PIPERACILLIN-TAZOBACTAM 3.375 GM in SODIUM CHLORIDE 0.9% 100 ML IVPB SCH ×3 (03:12→18:11)
[2022-06-30] MEDS: MELATONIN 3 MG TABLET PO SCH ×3 (07:14→22:09)
[2022-06-30 07:20] LABS: Glucose,Whole Blood 110 mg/dL (70-110)
[2022-06-30] MEDS: INSULIN ASPART (NovoLOG) 100 UNIT/ML VIAL SQ SCH ×4 (07:35→22:14)
--- NOTE | 2022-06-30 08:02 | XR ---
EXAMINATION TYPE: XR chest 1V portable DATE OF EXAM: 06/30/2022 7:36 AM COMPARISON: Chest radiographs from 06/28/2022 TECHNIQUE: XR chest 1V portable Frontal view of the chest. CLINICAL INDICATION:Male, 82 years old with history of shortness of breath; FINDINGS: Lungs/Pleura: Bibasilar opacities are similar. There is no evidence of pleural effusion or pneumothor ax. Pulmonary vascularity: Unremarkable. Heart/mediastinum: Cardiomediastinal silhouette is enlarged and stable. Musculoskeletal: No acute osseous pathology. IMPRESSION: Unchanged exam, with bibasilar atelectasis or infiltrate . Attention on follow-up imaging
[2022-06-30] MEDS: PANTOPRAZOLE 40 MG/10 ML VIAL IV SCH (09:03)
[2022-06-30] MEDS: ASPIRIN 81 MG PO SCH (10:41)
[2022-06-30] MEDS: APIXABAN 5 MG TAB PO SCH ×2 (10:41→22:06)
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
[2022-06-30 11:45] LABS: Glucose,Whole Blood 129 mg/dL (70-110)
[2022-06-30 12:09] LABS: HGB 12.4 gm/dL (13.0-17.5); MCH 29.5 pg (25.0-35.0); MCHC 31.8 g/dL (31.0-37.0); MCV 92.9 fL (80.0-100.0); Mean Platelet Volume 8.1; Platelet Count 258 k/uL (150-450); RDW 13.3 % (11.5-15.5); WBC 9.9 k/uL (3.8-10.6)
[2022-06-30 12:16] LABS: African American GFR (CKD) 62 (>60 ml/min/1.73 sqM); Anion Gap 4 mmol/L; Blood Urea Nitrogen 34 mg/dL (9-20); Calcium 7.9 mg/dL (8.4-10.2); Carbon Dioxide 24 mmol/L (22-30); Chloride 112 mmol/L (98-107); Glucose 123 mg/dL (74-99); Non-African American GFR(CKD) 54 (>60 ml/min/1.73 sqM); Potassium 3.8 mmol/L (3.5-5.1); Sodium 140 mmol/L (137-145)
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
[2022-06-30 16:38] LABS: Glucose,Whole Blood 94 mg/dL (70-110)
[2022-06-30 21:18] LABS: Glucose,Whole Blood 126 mg/dL (70-110)
[2022-06-30] MEDS: traZODone HCL 50 MG TAB PO SCH ×2 (22:07→22:10)
[2022-07-01] MEDS: PIPERACILLIN-TAZOBACTAM 3.375 GM in SODIUM CHLORIDE 0.9% 100 ML IVPB SCH ×2 (01:46→11:38)
[2022-07-01] MEDS: IPRATROPIUM-ALBUTEROL 3 ML NEB INHALATION SCH ×6 (03:49→23:53)
[2022-07-01 07:02] LABS: Glucose,Whole Blood 104 mg/dL (70-110)
[2022-07-01] MEDS: INSULIN ASPART (NovoLOG) 100 UNIT/ML VIAL SQ SCH ×4 (07:40→21:16)
[2022-07-01] MEDS: ASPIRIN 81 MG PO SCH (08:08)
[2022-07-01] MEDS: APIXABAN 5 MG TAB PO SCH ×2 (08:08→21:43)
[2022-07-01] MEDS: PANTOPRAZOLE 40 MG/10 ML VIAL IV SCH (08:08)
[2022-07-01 11:09] LABS: HGB 11.6 gm/dL (13.0-17.5); MCHC 32.2 g/dL (31.0-37.0); MCV 93.4 fL (80.0-100.0); Mean Platelet Volume 8.2; Platelet Count 228 k/uL (150-450); RBC 3.85 m/uL (4.30-5.90); RDW 13.4 % (11.5-15.5); WBC 9.5 k/uL (3.8-10.6)
--- NOTE | 2022-07-01 11:23 | MR ---
EXAMINATION TYPE: MR brain wo con DATE OF EXAM: 07/01/2022 COMPARISON: NONE HISTORY: Confusion with hallucination. Post cardiac arrest TECHNIQUE: T1-weighted sagittal, T2, FLAIR, and diffusion axial, and T2 coronal coronal views of the brain are submitted. FINDINGS: Examination limited by motion artifact. There is no evidence of acute ischemia. The ventricles, basal cisterns, and sulci overlying the conv exities are consistent with the patient's age. There is no mass effect. Moderate generalized degene rative changes focal areas of abnormal signal within the white matter bilaterally most typical of rem ote white matter ischemia. Craniocervical junction maintained. Sella turcica has a normal appearance. Changes of chronic mastoid itis. Changes of chronic sinusitis. Changes of a partially empty sella turcica. IMPRESSION: 1. No acute intracranial process. 2. Degenerative and nonspecific white matter changes most typical of ischemia
[2022-07-01 11:30] LABS: African American GFR (CKD) 67 (>60 ml/min/1.73 sqM); Anion Gap 1 mmol/L; Blood Urea Nitrogen 32 mg/dL (9-20); Calcium 7.5 mg/dL (8.4-10.2); Carbon Dioxide 26 mmol/L (22-30); Chloride 112 mmol/L (98-107); Glucose 107 mg/dL (74-99); Non-African American GFR(CKD) 58 (>60 ml/min/1.73 sqM); Potassium 3.8 mmol/L (3.5-5.1); Sodium 139 mmol/L (137-145)
[2022-07-01 11:54] LABS: Glucose,Whole Blood 119 mg/dL (70-110)
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
[2022-07-01 13:42] VITALS: BMI 30.4
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
[2022-07-01 16:26] LABS: Glucose,Whole Blood 97 mg/dL (70-110)
[2022-07-01] MEDS: SODIUM CHLORIDE 0.9% 1,000 ML IV SCH (16:39)
[2022-07-01 20:56] LABS: Glucose,Whole Blood 92 mg/dL (70-110)
[2022-07-01] MEDS: MELATONIN 3 MG TABLET PO SCH (21:43)
[2022-07-01] MEDS: polyethylene glycoL 3350 17 GM POWD.PACK PO SCH (21:43)
[2022-07-01] MEDS: traZODone HCL 50 MG TAB PO SCH (21:43)
[2022-07-02] MEDS: IPRATROPIUM-ALBUTEROL 3 ML NEB INHALATION SCH ×5 (04:25→20:15)
[2022-07-02 06:53] LABS: Glucose,Whole Blood 95 mg/dL (70-110)
[2022-07-02] MEDS: INSULIN ASPART (NovoLOG) 100 UNIT/ML VIAL SQ SCH ×4 (07:05→21:00)
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
[2022-07-02] MEDS: APIXABAN 5 MG TAB PO SCH ×2 (09:15→19:55)
[2022-07-02] MEDS: ASPIRIN 81 MG PO SCH (09:16)
[2022-07-02] MEDS: PANTOPRAZOLE 40 MG/10 ML VIAL IV SCH (09:26)
[2022-07-02 10:41] LABS: HCT 33.4 % (39.6-50.0); HGB 11.1 g/dL (13.0-17.0); MCH 30.7 pg (27.0-32.0); MCHC 33.2 g/dL (32.0-37.0); MCV 92.5 fL (80.0-97.0); Mean Platelet Volume 10.5 fL (9.5-12.2); NRBC Per 100 WBC 0 /100 WBCS (0.0-0.0); Platelet Count 229 X 10*3/uL (140-440); RBC 3.61 X 10*6/uL (4.40-5.60); RDW 13.7 % (11.5-14.5); WBC 10.76 X 10*3/uL (4.50-10.00)
[2022-07-02 10:55] LABS: African American GFR (CKD) 70.5 (60.0-200.0); Anion Gap 8.5 mmol/L (10.00-18.00); BUN/Creat Ratio 24.64 Ratio (12.00-20.00); Blood Urea Nitrogen 27.6 mg/dL (9.0-27.0); Calcium 7.8 mg/dL (8.7-10.3); Carbon Dioxide 24.6 mmol/L (20.0-27.5); Non-African American GFR(CKD) 60.9 (60.0-200.0); Potassium 3.9 mmol/L (3.5-5.5)
[2022-07-02 11:49] LABS: Glucose,Whole Blood 103 mg/dL (70-110)
--- NOTE | 2022-07-02 12:11 | XR ---
EXAMINATION TYPE: XR chest 1V portable DATE OF EXAM: 07/02/2022 COMPARISON: 06/30/2022 HISTORY: shortness of breath TECHNIQUE: Single frontal view of the chest is obtained. FINDINGS: Bilateral consolidation and small effusion. No pneumothorax. Atherosclerotic change of the aorta. Heart size normal with no overt failure. IMPRESSION: Bilateral infiltrate and small effusion stable from prior exam correlate for pneumonia.
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
[2022-07-02 16:47] LABS: Glucose,Whole Blood 104 mg/dL (70-110)
[2022-07-02] MEDS: SODIUM CHLORIDE 0.9% 1,000 ML IV SCH (16:58)
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
[2022-07-02] MEDS: MELATONIN 5 MG TABLET PO SCH (19:55)
[2022-07-02] MEDS: traZODone HCL 50 MG TAB PO SCH (19:55)
[2022-07-02] MEDS: polyethylene glycoL 3350 17 GM POWD.PACK PO SCH (19:56)
[2022-07-02 21:14] LABS: Glucose,Whole Blood 100 mg/dL (70-110)
[2022-07-03] MEDS: IPRATROPIUM-ALBUTEROL 3 ML NEB INHALATION SCH ×6 (00:28→21:02)
[2022-07-03 06:49] LABS: HCT 33.7 % (39.0-53.0); HGB 11.2 gm/dL (13.0-17.5); MCH 30.2 pg (25.0-35.0); MCHC 33.2 g/dL (31.0-37.0); MCV 91.1 fL (80.0-100.0); Platelet Count 251 k/uL (150-450); RDW 13.2 % (11.5-15.5); WBC 9.9 k/uL (3.8-10.6)
[2022-07-03 07:03] LABS: African American GFR (CKD) 75 (>60 ml/min/1.73 sqM); Anion Gap 7 mmol/L; Blood Urea Nitrogen 25 mg/dL (9-20); Calcium 7.5 mg/dL (8.4-10.2); Carbon Dioxide 23 mmol/L (22-30); Chloride 106 mmol/L (98-107); Glucose 94 mg/dL (74-99); Non-African American GFR(CKD) 65 (>60 ml/min/1.73 sqM); Potassium 3.5 mmol/L (3.5-5.1); Sodium 136 mmol/L (137-145)
[2022-07-03 07:07] LABS: Glucose,Whole Blood 99 mg/dL (70-110)
[2022-07-03] MEDS: CHLORHEXIDINE GLUCONATE 15 ML CUP MUCOUS MEM SCH (07:18)
[2022-07-03] MEDS: INSULIN ASPART (NovoLOG) 100 UNIT/ML VIAL SQ SCH ×4 (08:41→21:48)
[2022-07-03] MEDS: ASPIRIN 81 MG PO SCH (08:53)
[2022-07-03] MEDS: PANTOPRAZOLE 40 MG/10 ML VIAL IV SCH (08:53)
[2022-07-03] MEDS: APIXABAN 5 MG TAB PO SCH ×2 (08:53→20:29)
[2022-07-03 11:43] LABS: Glucose,Whole Blood 108 mg/dL (70-110)
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
[2022-07-03 16:20] LABS: Glucose,Whole Blood 104 mg/dL (70-110)
[2022-07-03] MEDS: SODIUM CHLORIDE 0.9% 1,000 ML IV SCH (16:40)
[2022-07-03] MEDS: polyethylene glycoL 3350 17 GM POWD.PACK PO SCH (20:29)
[2022-07-03] MEDS: MELATONIN 5 MG TABLET PO SCH (20:29)
[2022-07-03] MEDS: traZODone HCL 50 MG TAB PO SCH (20:30)
[2022-07-03 20:47] LABS: Glucose,Whole Blood 105 mg/dL (70-110)
[2022-07-03] MEDS ORDERED: IPRATROPIUM-ALBUTEROL 3 ML NEB INHALATION PRN (21:07)
[2022-07-04 06:52] LABS: Glucose,Whole Blood 98 mg/dL (70-110)
[2022-07-04] MEDS: IPRATROPIUM-ALBUTEROL 3 ML NEB INHALATION SCH ×2 (07:57→11:58)
[2022-07-04 08:18] VITALS: BP 129/70; RESP 16; TEMP 97.9
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
[2022-07-04] MEDS: INSULIN ASPART (NovoLOG) 100 UNIT/ML VIAL SQ SCH ×2 (08:46→12:40)
[2022-07-04] MEDS ORDERED: APIXABAN 5 MG TAB PO SCH (09:00)
[2022-07-04] MEDS: ASPIRIN 81 MG PO SCH (09:34)
[2022-07-04] MEDS: PANTOPRAZOLE 40 MG/10 ML VIAL IV SCH (09:34)
[2022-07-04 11:15] LABS: Glucose,Whole Blood 85 mg/dL (70-110)
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
[2022-07-04 12:12] VITALS: PULSE 82
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
== END 2022-07-04 13:05 | DRG 208 ==
LOC: EC 15:53 → 2SICU 17:19 → 4SSUR 06-28 16:05
PROVIDERS: ADMIT Internal Medicine; ATTEND Internal Medicine
PROC: 0BH18EZ Insertion of Endotracheal Airway into Trachea, Via Natural or Artificial Opening Endoscopic (ICD-10-PCS; principal; 2022-06-22)
PROC: 5A1945Z Respiratory Ventilation, 24-96 Consecutive Hours (ICD-10-PCS; principal; 2022-06-22)
PROC: 0D9670Z Drainage of Stomach with Drainage Device, Via Natural or Artificial Opening (ICD-10-PCS; 2022-06-22)
PROC: 3E033XZ Introduction of Vasopressor into Peripheral Vein, Percutaneous Approach (ICD-10-PCS; 2022-06-22)
PROC: 4A133J1 Monitoring of Arterial Pulse, Peripheral, Percutaneous Approach (ICD-10-PCS; 2022-06-23)
PROC: 03HY32Z Insertion of Monitoring Device into Upper Artery, Percutaneous Approach (ICD-10-PCS; 2022-06-23)
PROC: 02HV33Z Insertion of Infusion Device into Superior Vena Cava, Percutaneous Approach (ICD-10-PCS; 2022-06-23)
PROC: 4A133B1 Monitoring of Arterial Pressure, Peripheral, Percutaneous Approach (ICD-10-PCS; 2022-06-23)
PROC: 3E0G76Z Introduction of Nutritional Substance into Upper GI, Via Natural or Artificial Opening (ICD-10-PCS; 2022-06-26)
PROC: 5A09357 Assistance with Respiratory Ventilation, Less than 24 Consecutive Hours, Continuous Positive Airway Pressure (ICD-10-PCS; 2022-06-27)
DX: J80 Acute respiratory distress syndrome (principal); G93.41 Metabolic encephalopathy; J69.0 Pneumonitis due to inhalation of food and vomit; I46.9 Cardiac arrest, cause unspecified; I26.99 Other pulmonary embolism without acute cor pulmonale; N17.0 Acute kidney failure with tubular necrosis; T75.1XXA Unspecified effects of drowning and nonfatal submersion, initial encounter; E87.2 Acidosis; I16.1 Hypertensive emergency; G93.1 Anoxic brain damage, not elsewhere classified; J98.11 Atelectasis; N39.0 Urinary tract infection, site not specified; J90 Pleural effusion, not elsewhere classified; I48.0 Paroxysmal atrial fibrillation; Z66 Do not resuscitate; J45.909 Unspecified asthma, uncomplicated; I12.9 Hypertensive chronic kidney disease with stage 1 through stage 4 chronic kidney disease, or unspecified chronic kidney disease; N18.9 Chronic kidney disease, unspecified; J43.9 Emphysema, unspecified; E83.51 Hypocalcemia; F39 Unspecified mood [affective] disorder; Z28.310 Unvaccinated for COVID-19; I95.9 Hypotension, unspecified; I45.10 Unspecified right bundle-branch block; W69.XXXA Accidental drowning and submersion while in natural water, initial encounter; Y93.11 Activity, swimming; R33.9 Retention of urine, unspecified; E78.5 Hyperlipidemia, unspecified; I44.4 Left anterior fascicular block; R45.1 Restlessness and agitation; B96.89 Other specified bacterial agents as the cause of diseases classified elsewhere; R00.1 Bradycardia, unspecified; R22.0 Localized swelling, mass and lump, head; T45.0X5A Adverse effect of antiallergic and antiemetic drugs, initial encounter; E87.70 Fluid overload, unspecified; R44.1 Visual hallucinations; R41.0 Disorientation, unspecified; D63.1 Anemia in chronic kidney disease; R13.10 Dysphagia, unspecified; R53.1 Weakness; Z71.3 Dietary counseling and surveillance; Z88.8 Allergy status to other drugs, medicaments and biological substances; Z79.890 Hormone replacement therapy; Z79.82 Long term (current) use of aspirin; Z79.899 Other long term (current) drug therapy; Z79.01 Long term (current) use of anticoagulants
CPT/HCPCS: 31500; 36415; 36600; 70450; 70551; 71045; 72125; 72170; 78580; 80048; 80053; 80076; 81001; 82330; 82805; 83605; 83735; 84100; 84443; 84484; 85025; 85027; 85379; 85610; 85730; 87070; 87077; 87086; 87186; 87205; 93005; 93306; 93970; 94002; 94003; 94640; 94660; 94760; 95816; 99291